=== PATIENT | male | born 1950 ===

== ENCOUNTER → 2020-10-10 15:00 | Outpatient (CLI) | payer OTHER | END | disposition home or self-care (01) | LOC: PPH VACUNA 15:00 | PROVIDERS: ATTEND Emergency Medicine Pediatric Emergency Medicine | DX: Z23 Encounter for immunization (principal) ==

== ENCOUNTER 2020-10-31 12:10 | Outpatient (CLI) | payer OTHER | END 2020-10-31 12:25 | disposition home or self-care (01) | LOC: PPH VACUNA 12:10 | PROVIDERS: ATTEND Emergency Medicine Pediatric Emergency Medicine | DX: Z23 Encounter for immunization (principal) ==